=== PATIENT | female | born 1985 | race Hispanic/Latino ===

== ENCOUNTER 2019-10-16 12:51 | Emergency (ER) | payer MEDICAID, OTHER ==
[~2019-10-16 12:51] MED LIST: HYDR25TA PO; LISI40TA4 PO; NORG1TAB88 PO
== END 2019-10-16 13:49 | disposition home or self-care (01) ==
LOC: EDH 12:51
DX: L03.115 Cellulitis of right lower limb (principal); I10 Essential (primary) hypertension; Z88.0 Allergy status to penicillin; Z90.710 Acquired absence of both cervix and uterus